=== PATIENT | male | born 1990 | race Caucasian/White ===

== ENCOUNTER 2020-11-30 09:54 | Emergency (ER) | payer OTHER ==
[~2020-11-30] VITALS: Ht 175.3 cm; Wt 67.0 kg
--- NOTE | 2020-11-30 10:22 | NUR ---
MD LUTZ AT BEDSIDE FOR EVAL
--- NOTE | 2020-11-30 10:33 | NUR ---
requested records from [facility]
--- NOTE | 2020-11-30 10:56 | NUR ---
received records from [facility]
--- NOTE | 2020-11-30 11:41 | NUR ---
late entry: 31 YO MALE WITH HISTORY OF LLE DVT, ON [place], COMES IN W/ C/O PAIN AND SWELLING IN L. ANKLE THAT STARTED LAST NIGHT, AND RED SPOTS AND BRUSING ON LLE THAT HAS BEEN GOING ON FOR LAST MONTH.PT STATES LAST TUESDAY HAD INR CHECKED, INR 2.3, AND PT SETTING UP NEW PCP January. PATIENT LAYING IN BED TO COMFORT, HAVING [facility]AS[facility] OF [facility]LE [facility]. DREAD.
[2020-11-30 12:22] VITALS: BP 94/56
== END 2020-11-30 12:26 | disposition home or self-care (01) ==
LOC: ED 10:40
DX: G62.9 Polyneuropathy, unspecified (principal); R21 Rash and other nonspecific skin eruption; D68.59 Other primary thrombophilia; Z86.718 Personal history of other venous thrombosis and embolism; Z79.01 Long term (current) use of anticoagulants
CPT/HCPCS: 99284

== ENCOUNTER 2021-02-22 19:38 | Emergency (ER) | payer OTHER ==
[~2021-02-22] VITALS: Ht 175.3 cm; Wt 68.3 kg
--- NOTE | 2021-02-22 21:46 | NUR ---
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
[2021-02-22 21:57] LABS: INTERNATIONAL NORMALIZED RATIO 2.08 (0.93-1.1); PROTHROMBIN TIME 21.9 Seconds (9.6-11.5)
[2021-02-22 22:32] VITALS: BP 119/75
--- NOTE | 2021-02-22 22:58 | NUR ---
Report from Adry RIVERA
== END 2021-02-22 23:57 | disposition home or self-care (01) ==
LOC: ED 23:03
DX: M79.662 Pain in left lower leg (principal); F17.210 Nicotine dependence, cigarettes, uncomplicated; L29.9 Pruritus, unspecified; R60.0 Localized edema; Z86.718 Personal history of other venous thrombosis and embolism
CPT/HCPCS: 36415; 85610; 85730; 93971; 99284; 99406; Q0177